=== PATIENT | female | born 1965 ===

== ENCOUNTER 2018-01-31 11:04 | Emergency (ER) | payer SELFPAY ==
[2018-01-31 11:25] VITALS: RESP 18; O2SAT 100
--- NOTE | 2018-01-31 13:12 | ED PDOC ---
Lower Extremity Pain/Injury Time Seen by Provider: 01/31/18 11:34 Chief Complaint (Nursing): Lower Extremity Problem/Injury Chief Complaint (Provider): Right Foot Pain, Vaginal Itching History Per: Patient History/Exam Limitations: no limitations Onset/Duration Of Symptoms: Days (a couple (foot); x2 weeks (vaginal itching)) Current Symptoms Are (Timing): Still Present Additional Complaint(s): 52 year old female with pmhx of diabetes presents to the ED for evaluation of right foot swelling and pain for the past couple of days, beginning in the great toenail and has now spread upwards. Otherwise, denies trauma to area, fall, fevers, chills, night sweats, and history of gout. Additionally, patient notes that for the past two weeks she has had vaginal itching, but denies discharge, bleeding, pelvic pain, abdominal pain, and frequency. PMD: none provided Past Medical History Reviewed: Historical Data, Nursing Documentation, Vital Signs Vital Signs: Last Vital Signs Temp 98.4 F 01/31/18 11:18 Pulse 69 01/31/18 11:18 Resp 18 01/31/18 11:18 BP 142/79 01/31/18 11:18 Pulse Ox 100 01/31/18 11:18 - Medical History PMH: Diabetes - Surgical History Surgical History: No Surg Hx - Family History Family History: States: Unknown Family Hx - Social History Current smoker - smoking cessation education provided: No Ex-Smoker (has not smoked in the last 12 months): No Alcohol: None Drugs: Denies - Home Medications Home Medications: Ambulatory Orders Medication Instructions Recorded Cephalexin [cephalexin] 500 mg PO BID 10 Days cap 01/31/18 - Allergies Allergies/Adverse Reactions: Allergies Allergy/AdvReac Type Severity Reaction Status Date / Time No Known Allergies Allergy Verified 01/31/18 11:25 Review of Systems ROS Statement: Except As Marked, All Systems Reviewed And Found Negative Constitutional: Negative for: Fever, Chills, Sweats Gastrointestinal: Negative for: Abdominal Pain Genitourinary Female: Positive for: Other (vaginal itching). Negative for: Frequency, Vaginal Discharge, Vaginal Bleeding, Pelvic Pain Musculoskeletal: Positive for: Foot Pain (right with swelling) Physical Exam - Reviewed Nursing Documentation Reviewed: Yes Vital Signs Reviewed: Yes - Physical Exam Appears: Positive for: Non-toxic, No Acute Distress Head Exam: Positive for: ATRAUMATIC, NORMOCEPHALIC Eye Exam: Positive for: Normal appearance, EOMI, PERRL ENT: Positive for: Normal ENT Inspection Cardiovascular/Chest: Positive for: Regular Rate, Rhythm Respiratory: Positive for: Normal Breath Sounds. Negative for: Accessory Muscle Use, Respiratory Distress Pelvic Exam: Positive for: No Masses, Mass, Other (external exam notable for: erythema with some areas of excoriations especially at the superior aspect of the vulva; speculum exam: thin white discharge noted with no foul odor, cervical os closed). Negative for: Active Bleeding, Ulcers Extremity: Positive for: Tenderness (mild tenderness to palpation of dorsal aspect of right foot with mild erythema and edema in comparison to left foot; right foot: second and third metatarsal point tenderness on dorsum and plantar surfaces). Negative for: Other (fluctuance around right foot nailbeds; ulcerations to right foot) Lymphatic: Positive for: Normal Exam Neurologic/Psych: Positive for: Alert, Oriented Comments: Zinc Chloride Operator for pelvic exam: RONALD Walden - ECG O2 Sat by Pulse Oximetry: 100 (RA) Pulse Ox Interpretation: Normal Medical Decision Making Medical Decision Making: Time: 1207 Initial Impression: right foot pain, vaginal itching Initial Plan: --Podiatry consult --Right foot XR Xray shows no fracture Seen by Podiatry who will see patient in clinic for further evaluation of in- grown toenail. Given prescription for Keflex for possible cellulitis. Scribe Attestation: Documented by Letty Oneil, acting as a scribe for Marisa Hernández PA-C. Provider Scribe Attestation: All medical record entries made by the Scribe were at my direction and personally dictated by me. I have reviewed the chart and agree that the record accurately reflects my personal performance of the history, physical exam, medical decision making, and the department course for this patient. I have also personally directed, reviewed, and agree with the discharge instructions and disposition. Disposition - Clinical Impression Clinical Impression: Ingrown right big toenail - Patient ED Disposition Is Patient to be Admitted: No Counseled Patient/Family Regarding: Studies Performed, Diagnosis, Need For Followup, Rx Given - Disposition Referrals: Podiatry Clinic [Outside] Disposition: Routine/Home Disposition Time: 13:56 Condition: STABLE Additional Instructions: Take antibiotic as prescribed for the next 10 days and f/u with podiatry clinic. Recommend over the counter vaginal moisturizer for itching. Prescriptions: Cephalexin [cephalexin] 500 mg PO BID 10 Days cap Instructions: Ingrown Toenail (DC) Print Language: KAZAKH
--- NOTE | 2018-01-31 13:36 | RAD ---
Date of service: 01/31/2018 PROCEDURE: Right Foot Radiographs. HISTORY: swelling and pain in Right foot COMPARISON: None. FINDINGS: BONES: No fracture. Small plantar calcaneal spur. JOINTS: Normal. SOFT TISSUES: Normal. OTHER FINDINGS: None. IMPRESSION: Plantar calcaneal spur. No additional abnormality.
--- NOTE | 2018-01-31 13:41 | CP.PCM.CON ---
History of Present Illness - History of Present Illness History of Present Illness: Podiatry consult note for Dr. Burch, 52 year old female with pmhx of diabetes presents to the ED for evaluation of right foot swelling and pain for the past couple of days, beginning in the great toenail and has now spread upwards. Denies trauma to the area. States the pain has decreased however its still painful. Denies taking any pain medications. Admits to history of ingrown toe nails, and gout. Does not regularly see a director of student life. Denies f/n/v/sob. Allergies: denies Meds Home Medications: Home Medication List Medication Instructions Recorded Confirmed Type Cephalexin [cephalexin] 500 mg PO BID 10 Days cap 01/31/18 Rx Allergies/Adverse Reactions: Allergies Allergy/AdvReac Type Severity Reaction Status Date / Time No Known Allergies Allergy Verified 01/31/18 11:25 Physical Exam - Constitutional Appears: Well, Non-toxic, No Acute Distress - Head Exam Head Exam: ATRAUMATIC, NORMOCEPHALIC - Extremities Exam Additional comments: Right lower extremity exam: Vascular: DP/PT 2/4, CFT <3 secs x 5, TG warm to warm( increased temperature noted on the dorsal aspect of the foot and hallux), minimal erythema on the dorsal aspect of the hallux, edema noted dorsal aspect of the foot. neuro: protective sensation intact via ipswich 4/4 derm: no open lesions, no purulence noted at the hallucal nail morder, no irritation of the nail noted. ortho: minimal pain on palpation to the dorsal aspect of the foot, moderate pain on palpation to the hallux. - Neurological Exam Neurological exam: Alert, Oriented x3 - Psychiatric Exam Psychiatric exam: Normal Affect - Skin Skin Exam: Normal Color Results - Vital Signs Recent Vital Signs: Last Vital Signs Temp 98.4 F 01/31/18 11:18 Pulse 69 01/31/18 11:18 Resp 18 01/31/18 11:18 BP 142/79 01/31/18 11:18 Pulse Ox 100 01/31/18 13:31 Assessment & Plan - Assessment and Plan (Free Text) Assessment: 52 yo female seen in the ED for possible ingrown toe nail with resolving infection Plan: Patient seen and evaluated Chart, labs and vitals reviewed; afebrile History and plan discussed in detail with the attending; DR Burch X-rays of the right foot ordered and reviewed; no acute osseous abnormality noted SERGE wrap applied Keflex 500 mg bid x10 days rx by the ED patient to return to the ED if symptoms worsen thank you for the consult
[2018-01-31 14:28] VITALS: BP 130/80; PULSE 72; TEMP 98.1
== END 2018-01-31 14:20 | disposition home or self-care (01) ==
LOC: H.ER 11:04
DX: L60.0 Ingrowing nail (principal); E11.9 Type 2 diabetes mellitus without complications; M10.9 Gout, unspecified